=== PATIENT | male | born 1945 | race Caucasian/White ===

== ENCOUNTER 2019-09-12 14:05 | Emergency (ER) | payer MEDICARE ==
--- NOTE | 2019-09-12 15:10 | XRAY Report ---
Reason: ring toe pain Procedure Date: 09/12/2019 Accession Number: [id number] / [id number] Procedure: XR - Toe(s) LT CPT Code: Final Report FULL RESULT: EXAM: LEFT FOURTH TOE RADIOGRAPHY EXAM DATE: 09/12/2019 03:02 PM. CLINICAL HISTORY: Ring toe pain. COMPARISON: None. TECHNIQUE: 3 views. FINDINGS: Bones: No acute fracture. Joints: Normal alignment. No significant joint space narrowing. Soft Tissues: Unremarkable. IMPRESSION: Normal toe radiography. RADIA
--- NOTE | 2019-09-12 15:19 | ED Physician Documentation ---
PD HPI LOWER EXT INJURY - Stated complaint Stated Complaint: TOE PX - Chief complaint Chief Complaint: Wound - History obtained from History obtained from: Patient, Family - History of Present Illness PD HPI LOW EXT INJURY LOCATION: Left, Toe (ring) Type of injury: Other (unknown) Where injury occurred: Home Timing - onset: How many days ago (10) Timing - duration: Days (10) Timing - details: Gradual onset, Still present Improved by: Rest Worsened by: Moving, Palpating Associated symptoms: Swelling, Discolored. No: Weakness, Numbness Similar symptoms before: Has not had sx before Recently seen: Clinic - Additional information Additional information: 74-year-old male presented with what looks like a blood blister to the tip of the left ring toe about 10 days ago. He went in to see his primary care doctor about 5 days ago and she prescribed some mupirocin. The patient states he has been putting this on there but it did not seem to make any difference in the pain and the pain is been keeping him awake at night. He does not have swelling and no longer has the discoloration of the toe. He does have some peripheral neuropathy. He states the pain is different than neuropathy pain. Review of Systems Constitutional: denies: Fever, Chills, Myalgias Eyes: denies: Decreased vision Ears: denies: Ear pain Nose: denies: Congestion Throat: denies: Sore throat Respiratory: denies: Dyspnea, Cough GI: denies: Vomiting : denies: Dysuria Skin: reports: Lesions. denies: Rash Musculoskeletal: reports: Extremity pain. denies: Neck pain, Back pain PD PAST MEDICAL HISTORY - Past Medical History Past Medical History: Yes - Allergies Allergies/Adverse Reactions: Allergies Allergy/AdvReac Type Severity Reaction Status Date / Time No Known Drug Allergies Allergy Verified 09/12/19 14:18 - Social History Does the pt smoke?: No Smoking Status: Never smoker Does the pt drink ETOH?: Yes Does the pt have substance abuse?: No - Immunizations Immunizations are current?: Yes - POLST Patient has POLST: No PD ED PE NORMAL - Vitals Vital signs reviewed: Yes (hypertensive ) - General General: Alert and oriented X 3, No acute distress, Well developed/nourished - HEENT HEENT: Atraumatic, PERRL, EOMI - Neck Neck: Supple, no meningeal sign - Respiratory Respiratory: No respiratory distress - Extremities Extremities: No deformity, No tenderness to palpate, Normal ROM s pain, No edema, No calf tenderness / cord, Other (The left ring toe is unremarkable. There is paleness to the skin proximally consistent with being occluded with a bandaid for a prolonged time. The tip of the toe is without inflamation, swelling, drainage, discoloration or mass. The toe is tender. ) - Neuro Neuro: Alert and oriented X 3, pharmaceutical sales representative 2-12 intact, No motor deficit, No sensory deficit, Normal speech Eye Opening: Spontaneous Motor: Obeys Commands Verbal: Oriented GCS Score: 15 - Psych Psych: Normal mood, Normal affect Results - Vitals Vitals: Vital Signs - 24 hr 09/12/19 14:14 Temperature 37.2 C Heart Rate 74 Respiratory 17 Rate Blood Pressure 155/90 H O2 Saturation 100 Oxygen O2 Source Room air - Rads (name of study) toes L Radiology: Prelim report reviewed (Impression: Normal toe radiography.), EMP read indepedently, See rad report PD MEDICAL DECISION MAKING - ED course Complexity details: reviewed results, re-evaluated patient, considered differential, d/w patient, d/w family ED course: 74-year-old male with a sore left ring toe tip. There are no specific findings on physical examination and my thought is this patient likely had an ischemic deep injury secondary to compressive forces causing the blood blister. And is still recovering. Departure - Departure Disposition: 01 Home, Self Care Clinical Impression: Toe pain, left Condition: Stable Instructions: Corns Calluses Follow-Up: RADHA CORADO ARNP [Primary Care Provider] - Deb Schulz DPM [Provider Admit Priv/Credential] - Jasmeet Rock DPM [Physician No Access] - Gio Owens DPM [Physician No Access] -
[2019-09-12 16:02] VITALS: BP 163/86
== END 2019-09-12 16:08 | disposition home or self-care (01) ==
LOC: ED 14:05
DX: M79.675 Pain in left toe(s) (principal); S90.425A Blister (nonthermal), left lesser toe(s), initial encounter; X58.XXXA Exposure to other specified factors, initial encounter; G62.9 Polyneuropathy, unspecified
CPT/HCPCS: 73660; 99283; 99284

== ENCOUNTER 2019-12-20 08:45 | Outpatient (CLI) | payer MEDICARE ==
--- NOTE | 2019-12-20 13:28 | Ultrasound Report ---
Reason: SWELLING,MASS AND LUMP IN NECK Procedure Date: 12/20/2019 Accession Number: [id number] / [id number] Procedure: US - Head or Neck Soft Tissue CPT Code: Final Report FULL RESULT: EXAM: NECK ULTRASOUND EXAM DATE: 12/20/2019 08:49 AM. CLINICAL HISTORY: Left submandibular neck lump for 2 weeks. COMPARISON: None. TECHNIQUE: Real-time sonographic imaging was performed by the cardroom worker utilizing color-flow. Multiple brand representative static images were saved for review. FINDINGS: Sonographic evaluation of patient's left neck lump demonstrates an enlarged sub-mandibular mildly vascular lymph node measuring 2.5 x 2.0 x 1.9 cm and has a rounded configuration. An adjacent smaller lymph node measures 7 mm in short axis, upper normal. No cysts identified. IMPRESSION: Palpable lump corresponds to enlarged probable sub-mandibular lymph node measuring up to 19 mm in short axis. Less likely this could represent a soft tissue mass. Sonographic follow-up suggested to ensure resolution or further evaluation with cross-sectional imaging such as contrast MRI or CT. RADIA
--- NOTE | 2019-12-20 14:57 | XRAY Report ---
Reason: SWELLING,MASS AND LUMP IN NECK Procedure Date: 12/20/2019 Accession Number: [id number] / [id number] Procedure: XR - Chest 2 View X-Ray CPT Code: 15223 Final Report FULL RESULT: EXAM: CHEST RADIOGRAPHY EXAM DATE: 12/20/2019 08:51 AM. CLINICAL HISTORY: SWELLING, MASS AND LUMP IN NECK. COMPARISON: None. TECHNIQUE: 2 views. FINDINGS: Lungs/Pleura: Mild atelectatic changes noted at the right base. Mediastinum: Heart and mediastinal contours are unremarkable. Other: There is a moderate hiatal hernia present. IMPRESSION: 1. Mild atelectatic changes at the right base. 2. Moderate hiatal hernia. RADIA
== END 2019-12-20 08:46 | disposition home or self-care (01) ==
LOC: DI 08:45
PROVIDERS: ATTEND Nurse Practitioner Family
DX: R22.1 Localized swelling, mass and lump, neck (principal); J98.11 Atelectasis; K44.9 Diaphragmatic hernia without obstruction or gangrene
CPT/HCPCS: 71046; 76536

== ENCOUNTER 2020-02-07 08:25 | Outpatient (CLI) | payer MEDICARE ==
[2020-02-07 10:23] LABS: CREATININE 1.3 mg/dL (0.6-1.2)
[2020-02-07] MEDS ORDERED: IOVERSOL 320 100 ML VIAL IVP ONE ×2 (10:36→12:09)
--- NOTE | 2020-02-07 11:57 | CT Report ---
PROCEDURE: SOFT TISSUE NECK W INDICATIONS: SWELLING MASS,LUMP NECK CONTRAST: IV CONTRAST: Optiray 320 ml: 100 PO CONTRAST: *NO PO CONTRAST TECHNIQUE: After the administration of intravenous contrast, 3.0 mm axial sections acquired from the sella to th e aortic arch. Additional oblique axial 3.0 mm sections acquired through the pharynx. 3 mm thick co colleen reformats were generated. For radiation dose reduction, the following was used: automated exp osure control, adjustment of mA and/or kV according to patient size. COMPARISON: None. FINDINGS: Image quality: Excellent. Lymph nodes: There is definite left level 3 lymphadenopathy which is centrally necrotic, highly suspi cious for metastatic disease. This node measures 1.9 cm short axis diameter (coronal image 45 and axi al image 71). There are numerous additional prominent (but not threshold enlarged) bilateral cervical lymph nodes without central necrosis. These are not definitive for metastatic disease however many o f them have an abnormally rounded morphology with hazy fat attenuation surrounding the nodes, suspici ous for potential metastatic disease. Vessels: Visualized vasculature appears patent. Neck spaces: There is an enhancing, exophytic, and fungating mass arising from the dorsal tongue base measuring approximately 1.8 x 3.5 cm maximum axial dimension and 2.3 cm maximum craniocaudal dimensi on. The mass is best seen on axial images 67-78 and sagittal images 54-69. The mass crosses midline a nd abuts the right lateral pharyngeal wall with no definite evidence of invasion. The mass extends in feriorly along the mucosal surface to the level of the upper portion of the hyoid bone. There is some likely invasion of the preepiglottic fat in this location. Glands: Parotid and some mandibular glands are normal in appearance. Miscellaneous: Visualized brain and orbits appear normal. Lung apices appear clear. Superficial so ft tissues appear normal. Bones: No suspicious bony lesions. Visualized sinuses and mastoids appear unremarkable. IMPRESSION: Malignant-appearing mass at the dorsal tongue base, likely representing squamous cell carcinoma. Cent rally necrotic left level 3 lymph node which is consistent with metastatic squamous cell carcinoma. N umerous additional bilateral cervical lymph nodes which although not threshold and large are abnormal in architecture, also suspicious for metastatic disease. ENT referral for further staging and manage ment recommended. Reviewed by: Jorge Alberto Hanna MD on 02/07/2020 11:56 AM PDT Approved by: Jorge Alberto Hanna MD on 02/07/2020 11:56 AM PDT Station ID: [id number]
== END 2020-02-07 08:26 | disposition home or self-care (01) ==
LOC: LAB 08:25 → DI 08:26
PROVIDERS: ATTEND Nurse Practitioner Family
DX: R22.1 Localized swelling, mass and lump, neck (principal); K14.8 Other diseases of tongue; R59.0 Localized enlarged lymph nodes
CPT/HCPCS: 36415; 70491; 82565; Q9967

== ENCOUNTER 2021-02-20 14:30 | Emergency (ER) | payer MEDICARE ==
[2021-02-20] MEDS ORDERED: HYDROmorphone 1 MG/ML CARPUJECT IM STA (15:15)
--- NOTE | 2021-02-20 15:21 | ED Physician Documentation ---
History of Present Illness - Stated complaint Stated Complaint: GLF,CLAVICLE PX - Chief complaint Chief Complaint: Trauma Ext - History obtained from History obtained from: Patient - History of Present Illness Timing: Today Pain level max: 8 Pain level now: 8 - Additonal information Additional information: Patient is a 75-year-old male who presents to the emergency department after falling today landing on the right shoulder. Complains of pain to the right clavicle, mild pain to the neck and head, pain to the right hip. Worse with movement, better with rest. No numbness or tingling. No loss of consciousness. No nausea or vomiting. Patient is not on any anticoagulants. Review of Systems Constitutional: denies: Fever, Chills Eyes: denies: Decreased vision, Photophobia Ears: denies: Ear pain Nose: denies: Rhinorrhea / runny nose GI: denies: Vomiting, Diarrhea Skin: denies: Rash Musculoskeletal: denies: Back pain Neurologic: denies: Generalized weakness, Focal weakness, Numbness, Seizure, Confused, Altered mental status, Headache PD PAST MEDICAL HISTORY - Past Medical History Cardiovascular: None Respiratory: None Neuro: None Endocrine/Autoimmune: None GI: None : None HEENT: Other Musculoskeletal: None Derm: None - Past Surgical History General: Colonoscopy HEENT: Tonsil/Adenoidectomy - Present Medications Home Medications: Ambulatory Orders Medication Instructions Recorded Confirmed Oxycodone HCl/Acetaminophen 1 - 2 each PO Q6H PRN #14 tablet 02/20/21 [Percocet 5-325 mg Tablet] - Allergies Allergies/Adverse Reactions: Allergies Allergy/AdvReac Type Severity Reaction Status Date / Time No Known Drug Allergies Allergy Verified 02/20/21 14:37 - Social History Does the pt smoke?: No Smoking Status: Never smoker Does the pt drink ETOH?: Yes Does the pt have substance abuse?: No - Immunizations Immunizations are current?: Yes - POLST Patient has POLST: No POLST Status: Full Code PD ED PE NORMAL - Vitals Vital signs reviewed: Yes - General General: Alert and oriented X 3, No acute distress, Well developed/nourished - HEENT HEENT: Atraumatic (Couple skull fractures), PERRL, Moist mucous membranes - Neck Neck: Supple, no meningeal sign, Other (Mild upper C-spine tenderness to palpation, no step-off or deformity.) - Cardiac Cardiac: RRR, Strong equal pulses - Respiratory Respiratory: No respiratory distress, Clear bilaterally - Abdomen Abdomen: Soft, Non tender, Non distended - Back Back: No spinal TTP - Derm Derm: Warm and dry, No rash - Extremities Extremities: Other (No tenderness over the right shoulder, there is tenderness over the right clavicle. No gross deformity. There is mild swelling over the mid clavicle as well. Neurovascularly intact.) - Neuro Neuro: Alert and oriented X 3 - Psych Psych: Normal mood, Normal affect - Free text exam Free text exam: Patient also with mild tenderness over the right hip. Full range of motion present, minimal to no pain with passive range of motion, increased pain with active range of motion especially abduction. Neurovascularly intact. Otherwise negative exam of all major joints. Results - Vitals Vitals: Vital Signs - 24 hr 02/20/21 02/20/21 14:38 16:30 Temperature 36.4 C L Heart Rate 76 76 Respiratory 16 16 Rate Blood Pressure 141/83 H 134/79 H O2 Saturation 98 96 Oxygen O2 Source Room air - Rads (name of study) CT head Radiology: Prelim report reviewed, EMP read contemporaneously, See rad report (No acute abnormality) CT cervical spine Radiology: Prelim report reviewed, EMP read contemporaneously, See rad report (No acute abnormality) Right clavicle x-ray Radiology: Final report received, EMP read contemporaneously, See rad report (Mildly displaced mid and distal right clavicular fracture. ) Right hip x-ray Radiology: Final report received, EMP read contemporaneously, See rad report (No acute abnormality) PD MEDICAL DECISION MAKING - ED course Complexity details: reviewed results, re-evaluated patient, considered differential, d/w patient, d/w family ED course: No acute findings on head CT, cervical spine CT, right hip x-ray. Patient is able to bear weight and walk on the right hip. He will use a cane at home. Placed in a sling for the clavicle fracture. Will prescribe pain medication for home. We will have the patient follow-up with orthopedics for further care. No low back pain. No numbness or tingling. No neurological deficits. I am prescribing a short course of short-acting opioid pain medication for this patient. I have reviewed the patients RN HOUSE SUPERVISOR and no concerning findings were noted. I have discussed that the opioids are for short term therapy only, and will not be refilled from the ED. patient counseled regarding signs and symptoms for which I believe and urgent re-evaluation would be necessary. Patient with good understanding of and agreement to plan and is comfortable going home at this time This document was made in part using voice recognition software. While efforts are made to proofread this document, sound alike and grammatical errors may occur. Departure - Departure Disposition: 01 Home, Self Care Clinical Impression: Clavicle fracture Qualifiers: Encounter type: initial encounter Clavicle location: lateral end Fracture type: closed Fracture alignment: displaced Laterality: right Qualified Code(s): S42.031A - Displaced fracture of lateral end of right clavicle, initial encounter for closed fracture Condition: Good Instructions: ED Fx Clavicle Follow-Up: RADHA CORADO ARNP [Primary Care Provider] - Within 1 week [facility] [Provider Group] - Within 1 week Prescriptions: Oxycodone HCl/Acetaminophen [Percocet 5-325 mg Tablet] 1 - 2 each PO Q6H PRN #14 tablet PRN Reason: pain Comments: Follow-up with your doctor for further care. Return if you worsen. Your x-ray of your hip does not show any acute abnormalities tonight. Your head CT and cervical spine CT are normal as well. The x-ray of your clavicle does show a fracture. Stay in the sling until released by your doctor and orthopedics. I am prescribing a short course of narcotic pain medication for you. These are potentially dangerous and addictive medications that should be used carefully. These medications may constipate you. Take an mois-ulh-nmfxiry stool softener (docusate) twice daily with plenty of water while taking these medications. If you go 24 hours without a bowel movement, take pxag-lex-grrgcrh miralax, per package instructions. Do not drink or drive while taking these medications. If you received narcotic or sedating medications while in the emergency department, do not drive for 24 hours. Store this medication in a safe, secure place and out of reach of children. It is a violation of federal law to give or sell this medication to another person or to use in a manner other than prescribed. The ED will not refill narcotic prescriptions, including prescriptions lost or stolen. To dispose of unwanted medications: 1. [facility] [address] in [place] has a medication drop box. They accept prescription medications (in pill form) Tuesday through Tuesday 9:00 a.m. to 5:00 p.m. 2. The [facility] accepts prescription medications (in pill form only) for disposal year round. Call for more information. 3. Contact the [facility] for the next [facility] sponsored prescription drug collection event. , [phone], or [phone];
--- NOTE | 2021-02-20 15:54 | XRAY Report ---
PROCEDURE: Hip w/Pelvis 2-3V RT INDICATIONS: fall, R hip pain TECHNIQUE: AP pelvis with lateral view(s) of the right hip(s). COMPARISON: None. FINDINGS: Bones: No fractures or dislocations. Pelvic ring appears intact. No suspicious bony lesions. Soft tissues: The visualized bowel gas pattern is normal. No suspicious soft tissue calcifications. IMPRESSION: No visualized acute fracture or dislocation. However, occult injury cannot be excluded. Recommend short interval imaging follow-up in 7-10 days as clinically indicated for additional evalua tion. Reviewed by: Davida Ruiz MD on 02/20/2021 3:53 PM PDT Approved by: Davida Ruiz MD on 02/20/2021 3:53 PM PDT Station ID: [id number]
--- NOTE | 2021-02-20 15:55 | XRAY Report ---
PROCEDURE: Clavicle RT INDICATIONS: fall, R clavicle pain TECHNIQUE: 2 views of the clavicle were acquired. COMPARISON: None. FINDINGS: Bones: There is a comminuted fracture within the mid to distal right clavicle. There is mild inferior displacement of the middle fragment.. No suspicious bony lesions. Soft tissues: No suspicious soft tissue calcifications. IMPRESSION: Mildly displaced mid and distal right clavicular fracture. Reviewed by: Davida Ruiz MD on 02/20/2021 3:53 PM PDT Approved by: Davida Ruiz MD on 02/20/2021 3:53 PM PDT Station ID: [id number]
--- NOTE | 2021-02-20 16:10 | CT Report ---
PROCEDURE: HEAD WO INDICATIONS: fall, head injury TECHNIQUE: Noncontrast 4.5 mm thick angled axial sections acquired from the foramen magnum to the vertex. For r adiation dose reduction, the following was used: automated exposure control, adjustment of mA and/or kV according to patient size. COMPARISON: None. FINDINGS: Image quality: Excellent. CSF spaces: Basal cisterns are patent. No extra-axial fluid collections. Ventricles are normal in size and shape. Mild microvascular ischemic changes and atrophy are noted. Brain: No midline shift. No intracranial masses or hemorrhage. Fleming-white matter interface is norm al. Skull and face: Calvarium and visualized facial bones are intact, without suspicious lesions. Sinuses: Visualized sinuses and mastoids are clear. IMPRESSION: No acute intracranial abnormality. Reviewed by: Magdaleno Wang on 02/20/2021 4:08 PM PDT Approved by: Magdaleno Wang on 02/20/2021 4:08 PM PDT Station ID: [id number]
--- NOTE | 2021-02-20 16:13 | CT Report ---
PROCEDURE: CERVICAL SPINE WO INDICATIONS: fall, neck pain TECHNIQUE: Noncontrast 3 mm thick sections acquired from the skull base to the T4 level. Sagittal and coronal r eformats were then constructed. For radiation dose reduction, the following was used: automated exp osure control, adjustment of mA and/or kV according to patient size. COMPARISON: None. FINDINGS: Image quality: Excellent. Bones: No fractures or dislocations. Visualized superior ribs are intact. There is disc space narr owing and endplate degenerative changes with disc osteophytes at C5-6 and C6-7 which cause mild to mo derate stenosis at these levels. 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 Soft tissues: Prevertebral soft tissues are normal in thickness. No paravertebral hematomas. No ap ical pneumothoraces. IMPRESSION: 1. No acute abnormality of the cervical spine. 2. Degenerative disc disease at C5-6 and C6-7 as above. Reviewed by: Magdaleno Wang on 02/20/2021 4:12 PM PDT Approved by: Magdaleno Wang on 02/20/2021 4:12 PM PDT Station ID: [id number]
[2021-02-20 16:32] VITALS: BP 134/79
== END 2021-02-20 18:13 | disposition home or self-care (01) ==
LOC: ED 14:30
DX: S42.031A Displaced fracture of lateral end of right clavicle, initial encounter for closed fracture (principal); W01.0XXA Fall on same level from slipping, tripping and stumbling without subsequent striking against object, initial encounter; Y93.K1 Activity, walking an animal
CPT/HCPCS: 70450; 72125; 73000; 73502; 96372; 99284; J1170

== ENCOUNTER 2021-03-16 10:52 | Outpatient (CLI) | payer MEDICARE ==
--- NOTE | 2021-03-16 14:47 | DEXA Report ---
PROCEDURE: Dexa Spine and/or Hip INDICATIONS: CLAVICLE FX TECHNIQUE: Dual energy x-ray absorptiometry (DXA) was performed on a [employer] System. Regions measur ed are the AP Spine, femoral neck, and if needed forearm. COMPARISON: None. FINDINGS: Lumbar Spine: Bone Mineral Density 1.051 g/cm/cm,T score -1.4, osteopenia Left Hip: Bone Mineral Density 0.917 g/cm/cm,T score -1.3, osteopenia Left Femoral Neck: Bone Mineral Density 0.811 g/cm/cm, T score -2.0, osteopenia (T score greater or equal to -1.0: NORMAL) (T score from -1.1 to -2.4: OSTEOPENIA) (T score less than or equal to -2.5 to: OSTEOPOROSIS) Impression: Osteopenia. Patients with diagnosis of osteoporosis or osteopenia should have regular bone mineral density assess ment. For those eligible for Medicare, routine testing is allowed once every 2 years. Testing frequ ency can be increased for patients who have rapidly progressing disease or for those who are receivin g medical therapy to restore bone mass. Reviewed by: Liz Garcia MD, PhD on 03/16/2021 2:46 PM PDT Approved by: Liz Garcia MD, PhD on 03/16/2021 2:46 PM PDT Station ID: [id number]
== END 2021-03-16 10:53 | disposition home or self-care (01) ==
LOC: DI 10:52
PROVIDERS: ATTEND Nurse Practitioner Family
DX: S42.001A Fracture of unspecified part of right clavicle, initial encounter for closed fracture (principal); M85.89 Other specified disorders of bone density and structure, multiple sites

== ENCOUNTER 2021-12-01 07:54 | Outpatient (CLI) | payer MEDICARE ==
[2021-12-01 08:14] LABS: CREATININE 1.4 mg/dL (0.6-1.2)
[2021-12-01] MEDS ORDERED: IOPAMIDOL-300 100 ML VIAL ONE (08:38)
[2021-12-01] MEDS ORDERED: IOPAMIDOL-300 100 ML VIAL IVP ONE (08:55)
--- NOTE | 2021-12-01 14:18 | CT Report ---
PROCEDURE: SOFT TISSUE NECK W INDICATIONS: TONGUE CA CONTRAST: IV CONTRAST: Isovue 300 ml: 100 PO CONTRAST: *NO PO CONTRAST TECHNIQUE: After the administration of intravenous contrast, 3.0 mm axial sections acquired from the sella to th e aortic arch. Additional oblique axial 3.0 mm sections acquired through the pharynx. 3 mm thick co colleen reformats were generated. For radiation dose reduction, the following was used: automated exp osure control, adjustment of mA and/or kV according to patient size. COMPARISON: Soft tissue neck 02/07/2020 FINDINGS: Image quality: Excellent. Lymph nodes: No enlarged lymph nodes seen throughout the neck. Vessels: Visualized vasculature appears patent. Neck spaces: The oropharynx, nasopharynx, and pharynx demonstrate no mucosal lesions. Previous base of tongue lesion is no longer visualized. There is effacement of the left aryepiglottic fold compared to 2019. No discrete mass is identified.. Glands: The parotid and submandibular glands appear normal. The thyroid is normal in size and there are no incidental findings. Miscellaneous: Visualized brain and orbits appear normal. Lung apices appear clear. Superficial so ft tissues appear normal. Bones: No suspicious bony lesions. Visualized sinuses and mastoids appear unremarkable. IMPRESSION: No visualized tongue base mass as present on prior exam. Effacement of the left aryepiglottic fold is present compared to 2019. This could represent lack of p neumatization. While no discrete enhancing mass is identified, mucosal lesion cannot be definitively excluded and further evaluation with direct visualization is recommended. CLINICAL RECOMMENDATION STATEMENTS: In patients <35 years with an ITN detected on CT, MRI, or extrathyroidal ultrasound, the Committee re commends further evaluation with dedicated thyroid ultrasound if the nodule is "e1 cm and has no susp icious imaging features, and if the patient has normal life expectancy. In patients "e35 years with an ITN detected on CT, MRI, or extrathyroidal ultrasound, the Committee r ecommends further evaluation with dedicated thyroid ultrasound if the nodule is "e1.5 cm and has no s uspicious imaging features, and if the patient has normal life expectancy. (ACR, 2014) Reviewed by: Davida Ruiz MD on 12/01/2021 1:17 PM FREDA Approved by: Davida Ruiz MD on 12/01/2021 1:17 PM [id number] Station ID: [id number]
== END 2021-12-01 07:55 | disposition home or self-care (01) ==
LOC: LAB 07:54
PROVIDERS: ATTEND Radiology Radiation Oncology
DX: Z08 Encounter for follow-up examination after completed treatment for malignant neoplasm (principal); Z85.810 Personal history of malignant neoplasm of tongue; R93.89 Abnormal findings on diagnostic imaging of other specified body structures
CPT/HCPCS: 36415; 70491; 82565; 84520; Q9967

== ENCOUNTER 2023-04-05 08:40 | Outpatient (CLI) | payer MEDICARE ==
[2023-04-05 09:50] LABS: CREATININE 1.1 mg/dL (0.6-1.3)
[2023-04-05] MEDS ORDERED: iohexoL-300 100 ML VIAL IVP ONE (14:14)
--- NOTE | 2023-04-05 16:25 | CT Report ---
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 Additional oblique axial 3.0 mm sections acquired through the pharynx. 3 mm thick co colleen reformats were generated. For radiation dose reduction, the following was used: automated exp osure control, adjustment of mA and/or kV according to patient size. COMPARISON: Soft tissue neck 12/01/2021, 02/07/2020 FINDINGS: Image quality: Excellent. Lymph nodes: No enlarged lymph nodes seen throughout the neck. Vessels: Visualized vasculature appears patent. Neck spaces: As identified on prior exam, there remains effacement of the left aryepiglottic fold. Si te of previous tongue base mass demonstrates no recurrent or residual disease within this region. Glands: The parotid and submandibular glands appear normal. The thyroid is normal in size and there are no incidental findings. Miscellaneous: Visualized brain and orbits appear normal. Lung apices appear clear. Superficial so ft tissues appear normal. Bones: No suspicious bony lesions. Visualized sinuses and mastoids appear unremarkable. IMPRESSION: Stable interval exam demonstrating effacement of the left aryepiglottic fold. Previous site of tongue base malignancy is stable without visualized recurrent or residual disease. No adenopathy. Reviewed by: Davida Ruiz MD on 04/05/2023 4:24 PM PDT Approved by: Davida Ruiz MD on 04/05/2023 4:24 PM PDT Station ID: [id number]
== END 2023-04-05 08:41 | disposition home or self-care (01) ==
LOC: LAB 08:40
PROVIDERS: ATTEND Radiology Radiation Oncology
DX: Z08 Encounter for follow-up examination after completed treatment for malignant neoplasm (principal); Z85.810 Personal history of malignant neoplasm of tongue; Z92.3 Personal history of irradiation
CPT/HCPCS: 36415; 70491; 82565; Q9967